=== PATIENT | male | born 1990 | race Caucasian/White ===

== ENCOUNTER 2017-11-23 08:36 | Emergency (ER) | payer OTHER ==
[2017-11-23] MEDS ORDERED: Famotidine 20 MG TAB ONE (09:11)
[2017-11-23] MEDS ORDERED: Ondansetron ODT 8 MG TAB ONE (09:11)
[2017-11-23] MEDS ORDERED: Ondansetron HCl/PF 4 MG/2 ML Vial ONE ×2 (09:11→09:47)
[2017-11-23 09:12] LABS: #Lymphocytes 1.9 thou/uL (1.20-3.40); #Monocytes 1.6 thou/uL (0.11-0.59); #Neutrophils 10.8 thou/uL (1.40-6.50); %Eosinophils 0.2 % (0.0-10.0); %Lymphocytes 13.2 % (21.0-51.0); %Monocytes 10.9 % (0.0-10.0); %Neutrophils 75.7 % (42.0-75.0); Mean Corpuscular HGB CONC 36.1 g/dL (32.0-36.0); Mean Corpuscular Hemoglobin 30.8 pg (27.0-31.0); Mean Corpuscular Volume 85.4 fl (80.0-94.0); Mean Platelet Volume 7.4 fL (7.4-10.4); Platelet Count 298 thou/uL (130-400); RBC Distribution Width 11.5 % (11.5-14.5); Red Blood Cell (RBC) Count 6.17 mill/uL (4.70-6.10); White Blood Cell (WBC) Count 14.3 thou/uL (4.8-10.8)
[2017-11-23] MEDS ORDERED: Dicyclomine 20 MG TAB ONE (09:13)
[2017-11-23 09:15] LABS: Bilirubin Moderate (Negative); Blood, Urine Negative (Negative); Clarity CLOUDY (Clear); Glucose, Urine (Dipstick) Negative (Negative); Leukocyte Trace (Negative); Nitrite Negative (Negative); Protein, Urine (Dipstick) 100 mg/dL (Neg-Trace); Specific Gravity, Urine 1.034 (1.002-1.036); Urobilinogen 0.2 mg/dL (0.2-1.0)
[2017-11-23 09:17] LABS: WBC/HPF 21-50 HPF (0-3)
[2017-11-23] MEDS ORDERED: Pantoprazole 40 MG VIAL ONE (09:22)
[2017-11-23 09:34] LABS: Pathc Cast-AUWi Flag 8.72 (0-2.49); RBC/HPF 0-3 HPF (0-3)
[2017-11-23 09:35] LABS: Renal Epithelial 0-3 HPF (0-3)
[2017-11-23 09:36] LABS: Bacteria/HPF Rare-Few HPF (None Seen)
[2017-11-23 09:46] LABS: ALT (SGPT) 31 U/L (8-55); AST (SGOT) 24 U/L (5-34); Albumin 5.5 g/dL (3.5-5.0); Alkaline Phosphatase 53 U/L (40-150); Anion Gap 22 mmol/L (10-20); BUN (Urea Nitrogen) 23 mg/dL (8.9-20.6); Bilirubin, Total 1.5 mg/dL (0.2-1.2); Calc. Creatinine Clearance 0 mL/min (70-130); Calcium 10.9 mg/dL (7.8-10.44); Carbon Dioxide 19 mmol/L (22-29); Chloride 100 mmol/L (98-107); Estimated GFR-MDRD 66; Globulin 3.5 g/dL (2.4-3.5); Glucose 113 mg/dL (70-105); Lipase 10 U/L (8-78); Potassium 3.9 mmol/L (3.5-5.1); Sodium 137 mmol/L (136-145)
[2017-11-23] MEDS ORDERED: Iopamidol 370 76% 50 ML VIAL FS ONE (10:59)
[2017-11-23] MEDS ORDERED: ISOVUE-370 76%-LOCM 1 ML ONE (10:59)
[2017-11-23] MEDS ORDERED: Metoclopramide HCl 10 MG/2 ML VIAL ONE (11:22)
--- NOTE | 2017-11-23 11:57 | CT ---
ABDOMEN AND PELVIS CT CONTRAST ENHANCED: HISTORY: Diffuse abdominal pain. Nausea and vomiting. FINDINGS: Contrast enhanced CT images of the abdomen and pelvis demonstrate the lung bases to be unremarkable. No evidence of free intraperitoneal air is seen. The liver and spleen are unremarkable. The gallbladder and pancreas are unremarkable. The adrenal g lands and kidneys are unremarkable. No evidence of paraaortic lymphadenopathy is seen. No dilated loops of small bowel are seen. A norm al appendix is seen. The colon is unremarkable. No evidence of hernias or intraabdominal pathology is seen. There does appear to be some thickening seen in the bladder wall. This may represent possible cystit is. Some esophageal wall thickening. Impression: 1: Bladder and esophageal thickening. POS: C
[2017-11-23] MEDS ORDERED: Lorazepam 2 MG/ML VIAL ONE (13:07)
[2017-11-23] MEDS ORDERED: Ciprofloxacin 500 MG TAB ONE (13:08)
[2017-11-25 10:28] LABS: Chlamydia trachomatis by NAA Negative (Negative)
== END 2017-11-23 13:44 | disposition home or self-care (01) ==
LOC: ERS 08:36
DX: N30.00 Acute cystitis without hematuria (principal); R11.2 Nausea with vomiting, unspecified; F41.9 Anxiety disorder, unspecified; F32.9 Major depressive disorder, single episode, unspecified
CPT/HCPCS: 36415; 74177; 80053; 81003; 81015; 82550; 83690; 85025; 87491; 87591; 96361; 96374; 96375; C9113; J2060; J2405; J2765

== ENCOUNTER 2017-11-23 21:21 | Observation (INO) | payer OTHER ==
[2017-11-23] MEDS ORDERED: Promethazine HCl 25 MG/ML VIAL ONE (21:51)
[2017-11-23 22:19] LABS: #Lymphocytes 2.7 thou/uL (1.20-3.40); #Monocytes 1.6 thou/uL (0.11-0.59); #Neutrophils 8.7 thou/uL (1.40-6.50); %Basophils 0.2 % (0.0-1.0); %Eosinophils 0.1 % (0.0-10.0); %Lymphocytes 20.6 % (21.0-51.0); %Monocytes 12.3 % (0.0-10.0); %Neutrophils 66.8 % (42.0-75.0); Hemoglobin 17.7 g/dL (14.0-18.0); Mean Corpuscular HGB CONC 35.9 g/dL (32.0-36.0); Mean Corpuscular Hemoglobin 30.7 pg (27.0-31.0); Mean Corpuscular Volume 85.4 fl (80.0-94.0); Mean Platelet Volume 7.2 fL (7.4-10.4); Platelet Count 251 thou/uL (130-400); RBC Distribution Width 11.4 % (11.5-14.5); Red Blood Cell (RBC) Count 5.78 mill/uL (4.70-6.10); White Blood Cell (WBC) Count 13.1 thou/uL (4.8-10.8)
[2017-11-23 22:50] LABS: ALT (SGPT) 29 U/L (8-55); AST (SGOT) 23 U/L (5-34); Albumin 5.1 g/dL (3.5-5.0); Alkaline Phosphatase 49 U/L (40-150); Anion Gap 17 mmol/L (10-20); BUN (Urea Nitrogen) 17 mg/dL (8.9-20.6); Bilirubin, Total 1.8 mg/dL (0.2-1.2); Calc. Creatinine Clearance 0 mL/min (70-130); Carbon Dioxide 21 mmol/L (22-29); Chloride 102 mmol/L (98-107); Estimated GFR-MDRD Greater than 90; Globulin 2.8 g/dL (2.4-3.5); Glucose 92 mg/dL (70-105); Potassium 3.3 mmol/L (3.5-5.1); Protein, Total 7.9 g/dL (6.0-8.3); Sodium 137 mmol/L (136-145)
[2017-11-23] MEDS ORDERED: diphenhydrAMINE 50 MG/ML VIAL ONE (22:58)
[2017-11-23] MEDS ORDERED: cefTRIAXone\\ROCEPHIN 1 GM VIAL ONE (23:32)
[2017-11-23 23:45] LABS: Amphetamine Not Detected (NotDetected); Benzodiazepine Screen Detected (NotDetected); Cocaine Metabolite Screen Not Detected (NotDetected); Medtox Reader # READER 4; Methamphetamine Not Detected (NotDetected); Opiate Screen Not Detected (NotDetected); Phencyclidine (PCP) Not Detected (NotDetected); THC/Cannabinoid Screen Detected (NotDetected); Tricyclic Screen Detected (NotDetected)
[2017-11-23] MEDS ORDERED: Haloperidol Lactate 5 MG/ML VIAL ONE (23:45)
[2017-11-23 23:46] LABS: Barbiturates Screen Not Detected (NotDetected); Medtox Control Line Valid? VALID (VALID); Methadone Not Detected (NotDetected); Oxycodone Screen Not Detected (NotDetected)
[2017-11-24 00:02] LABS: HIV (1/2) Antibody/Antigen Non-Reactive (NonReactive); HIV 1/2 INDEX 0.28 S/CO (<1.00)
[2017-11-24 01:04] VITALS: BMI 21.3
[2017-11-24] MEDS: Dextrose 5 % And 0.9 % NaCl 1,000 ML IV SCH ×2 (02:02→11:03)
[2017-11-24 02:35] LABS: Lactic Acid 1.9 mmol/L (0.5-2.2)
[2017-11-24] MEDS ORDERED: Haloperidol Lactate 5 MG/ML VIAL IM SCH (04:00)
[2017-11-24] MEDS ORDERED: Promethazine HCl 25 MG/ML VIAL IM/IV PRN (08:47)
[2017-11-24] MEDS ORDERED: Ondansetron HCl/PF 4 MG/2 ML Vial IVP PRN (08:47)
[2017-11-24] MEDS ORDERED: Acetaminophen 325 MG TAB PO PRN (08:48)
[2017-11-24 09:15] LABS: #Lymphocytes 2.6 thou/uL (1.20-3.40); #Monocytes 1.2 thou/uL (0.11-0.59); %Basophils 0.2 % (0.0-1.0); %Eosinophils 0.4 % (0.0-10.0); %Lymphocytes 23.6 % (21.0-51.0); %Monocytes 11.3 % (0.0-10.0); %Neutrophils 64.6 % (42.0-75.0); Hemoglobin 15.4 g/dL (14.0-18.0); Mean Corpuscular HGB CONC 35.3 g/dL (32.0-36.0); Mean Corpuscular Hemoglobin 30.6 pg (27.0-31.0); Mean Corpuscular Volume 86.8 fl (80.0-94.0); Mean Platelet Volume 7.3 fL (7.4-10.4); Platelet Count 186 thou/uL (130-400); RBC Distribution Width 11.3 % (11.5-14.5); Red Blood Cell (RBC) Count 5.04 mill/uL (4.70-6.10); White Blood Cell (WBC) Count 10.8 thou/uL (4.8-10.8)
[2017-11-24 09:36] LABS: Anion Gap 9 mmol/L (10-20); BUN (Urea Nitrogen) 13 mg/dL (8.9-20.6); Calc. Creatinine Clearance 139 mL/min (70-130); Calcium 8.8 mg/dL (7.8-10.44); Carbon Dioxide 27 mmol/L (22-29); Chloride 105 mmol/L (98-107); Estimated GFR-MDRD Greater than 90; Glucose 117 mg/dL (70-105); Potassium 3.6 mmol/L (3.5-5.1); Sodium 137 mmol/L (136-145)
[2017-11-24 11:34] VITALS: BP 110/67; TEMP 97.9
--- NOTE | 2017-11-24 12:20 | HP ---
HISTORY OF PRESENT ILLNESS: This is a 27-year-old gentleman with a past medical history significant for daily infrequent marijuana use, presents to the hospital due to nausea, vomiting that has been g oing on for the past few days. The patient states that he began having nausea, vomiting for the past few days that has continued to be persistent. The patient went to an urgent care clinic approximate ly a day or two ago because of these symptoms and was told that he had a stomach virus. The patient was treated supportively there had went home, but he said his symptoms continued, so he decided to co me to the hospital for further evaluation and management. He complains of some diffuse abdominal megan n as well. Denies any chills, sweats, diarrhea, melena, or hematochezia. The patient states that he smokes marijuana daily. He states that he has been smoking marijuana, even with all these symptoms that have been going on. PAST MEDICAL HISTORY: Polysubstance abuse. PAST MEDICAL HISTORY: None. FAMILY HISTORY: Reviewed and was noncontributory. REVIEW OF SYSTEMS: A 14-point review of systems was reviewed and was negative other than what was me ntioned in the HPI. HOME MEDICATIONS: None. DRUG ALLERGIES: None. PHYSICAL EXAMINATION: VITAL SIGNS: Blood pressure is 131/78, pulse 99, respiratory rate was 16, pulse was 64. GENERAL: The patient was in no apparent distress, was lying in bed, but had little bit of tremors. HEENT: Head: Normocephalic, atraumatic. Eyes: Pupils are round and reactive to light. Extraocula r muscles were intact. Conjunctivae are pink. Sclerae nonicteric. Mouth: Oral mucosa pink and hao st. No erythema was noted. NECK: Soft, supple, no JVD, no carotid bruits, lymphadenopathy. CARDIOVASCULAR: Regular rate and rhythm. S1, S2 sounds are heard. No S3, no S4. RESPIRATORY: Clear bilateral sounds. ABDOMEN: Bowel sounds, soft, mild tenderness diffusely throughout. No guarding or rebound. EXTREMITIES: Pulses were 2+ dorsalis pulse. No pedal edema could be appreciated. LABORATORY DATA: White blood cell count was 13.1 and went down to 10.8, hemoglobin was 17.7, platele t count was 251. Sodium was 137, potassium 3.3 to 3.6, chloride 102, bicarbonate is 21 and 27, BUN w as 17, creatinine was 0.97, then 0.75, glucose was 117, lactic acid was 3.3 initially, then came down to 1.9. Drug tox was positive for benzodiazepines, marijuana, as well as tricyclics. CT of the abdomen just showed thickening of the esophagus as well as the bladder. ASSESSMENT AND PLAN: 1. Nausea, vomiting, likely secondary to continued frequent marijuana use. 2. Lactic acidosis likely secondary to prerenal in nature, resolved. The patient while in hospital, patient will be treated supportively with Zofran as well as Phenergan. The patient was initially made n.p.o., but will advance the diet as tolerated. Will allow the lucy ent to sleep off symptoms that he is having right now as the patient does seem to be improving. If h e continues to improve, we will discharge the patient later today as there is no other interventions required at this time.
--- NOTE | 2017-11-24 12:37 | DIS ---
DISCHARGE DIAGNOSES: 1. Nausea, vomiting, likely secondary to continued marijuana use. 2. Marijuana use. HOSPITAL COURSE: While the patient was in hospital, the patient was treated supportively with Zofran as well as Phenergan. The patient was also started on IV fluids as well. The patient with supporti ve measures only, the patient had improved significantly. The lactic acid had resolved. The patient no longer was having nausea, vomiting. The patient's diet was advanced from n.p.o. to regular diet for which the patient tolerated with no issues. There were no other issues that was going on. The l eukocytosis had also resolved, which was thought to be a stress reaction in nature; therefore did not require antibiotics. Because the patient was doing well, and was comfortable we are discharging the patient home. I had educated and instructed the patient to stay away from marijuana for which the p atient states that he understood. DISCHARGE CONDITION: Much improved from when he first came in. DISCHARGE ACTIVITY: As tolerated. DISCHARGE MEDICATIONS: Please see home medication list, it has been reconciled. DISCHARGE DIET: As tolerated. DISCHARGE FOLLOWUP APPOINTMENTS: Followup with primary care physician as needed. Discharge planning took less than 30 minutes.
== END 2017-11-24 14:36 | disposition home or self-care (01) ==
LOC: ERS 21:21 → 2SW 11-24 00:02
PROVIDERS: ADMIT Internal Medicine; ATTEND Internal Medicine
DX: R11.2 Nausea with vomiting, unspecified (principal); E87.2 Acidosis; F19.11 Other psychoactive substance abuse, in remission
CPT/HCPCS: 36415; 80048; 80306; 83605; 85025; 87040; 87389; 96361; 96365; 96366; 96367; 96372; 96375; G0378; J0696; J1200; J1630; J2550

== ENCOUNTER 2018-01-30 05:12 | Emergency (ER) | payer OTHER, SELFPAY ==
[2018-01-30] MEDS ORDERED: Ondansetron HCl/PF 4 MG/2 ML Vial ONE (05:59)
[2018-01-30 06:15] LABS: #Lymphocytes 1.4 thou/uL (1.20-3.40); #Monocytes 1.1 thou/uL (0.11-0.59); #Neutrophils 13.2 thou/uL (1.40-6.50); %Basophils 0.3 % (0.0-1.0); %Eosinophils 0.2 % (0.0-10.0); %Lymphocytes 8.9 % (21.0-51.0); %Monocytes 6.7 % (0.0-10.0); %Neutrophils 83.9 % (42.0-75.0); Hemoglobin 17.6 g/dL (14.0-18.0); Mean Corpuscular HGB CONC 35.3 g/dL (32.0-36.0); Mean Corpuscular Hemoglobin 30.6 pg (27.0-31.0); Mean Corpuscular Volume 86.5 fL (78.0-98.0); Mean Platelet Volume 7.7 fL (7.4-10.4); Platelet Count 284 thou/uL (130-400); RBC Distribution Width 11.3 % (11.5-14.5); Red Blood Cell (RBC) Count 5.75 mill/uL (4.70-6.10); White Blood Cell (WBC) Count 15.7 thou/uL (4.8-10.8)
[2018-01-30] MEDS ORDERED: Capsaician 0.025% Cream 60 gm Tube TOP SCH (06:30)
[2018-01-30 06:34] LABS: ALT (SGPT) 49 U/L (8-55); AST (SGOT) 29 U/L (5-34); Albumin 5.3 g/dL (3.5-5.0); Alkaline Phosphatase 50 U/L (40-150); Anion Gap 21 mmol/L (10-20); BUN (Urea Nitrogen) 12 mg/dL (8.9-20.6); Bilirubin, Total 1.8 mg/dL (0.2-1.2); Calc. Creatinine Clearance 0 mL/min (70-130); Calcium 10.7 mg/dL (7.8-10.44); Carbon Dioxide 17 mmol/L (22-29); Chloride 103 mmol/L (98-107); Estimated GFR-MDRD Greater than 90; Globulin 3.2 g/dL (2.4-3.5); Glucose 173 mg/dL (70-105); Lipase 11 U/L (8-78); Protein, Total 8.5 g/dL (6.0-8.3); Sodium 137 mmol/L (136-145)
[2018-01-30] MEDS ORDERED: Haloperidol Lactate 5 MG/ML VIAL ONE ×2 (06:45→07:41)
[2018-01-30 07:40] LABS: Bilirubin Negative (Negative); Blood, Urine Negative (Negative); Clarity CLEAR (Clear); Glucose, Urine (Dipstick) 100 mg/dL (Negative); Leukocyte Negative (Negative); Nitrite Negative (Negative); Protein, Urine (Dipstick) Negative (Neg-Trace); Specific Gravity, Urine 1.024 (1.002-1.036); Urobilinogen 0.2 mg/dL (0.2-1.0)
[2018-01-30 07:52] LABS: Amphetamine Not Detected (NotDetected); Barbiturates Screen Not Detected (NotDetected); Benzodiazepine Screen Not Detected (NotDetected); Cocaine Metabolite Screen Not Detected (NotDetected); Medtox Control Line Valid? VALID (VALID); Medtox Reader # READER 4; Methadone Not Detected (NotDetected); Methamphetamine Not Detected (NotDetected); Opiate Screen Not Detected (NotDetected); Oxycodone Screen Not Detected (NotDetected); Phencyclidine (PCP) Not Detected (NotDetected); THC/Cannabinoid Screen Detected (NotDetected); Tricyclic Screen Not Detected (NotDetected)
== END 2018-01-30 09:56 | disposition home or self-care (01) ==
LOC: ERS 05:12
DX: F12.188 Cannabis abuse with other cannabis-induced disorder (principal); F41.9 Anxiety disorder, unspecified; F32.9 Major depressive disorder, single episode, unspecified
CPT/HCPCS: 80053; 80306; 81003; 83690; 85025; 93005; 96361; 96374; 96375; J1630; J2405

== ENCOUNTER 2018-01-31 12:43 | Emergency (ER) | payer OTHER | END 2018-01-31 14:19 | disposition left against medical advice (07) | LOC: ERS 12:43 | DX: Z53.21 Procedure and treatment not carried out due to patient leaving prior to being seen by health care provider (principal) ==

== ENCOUNTER 2018-02-02 10:18 | Inpatient (IN) | payer OTHER, SELFPAY ==
[2018-02-02] MEDS ORDERED: Ondansetron HCl/PF 4 MG/2 ML Vial ONE ×2 (10:47→11:11)
[2018-02-02 11:17] LABS: #Basophils 0.1 thou/uL (0.0-0.2); #Lymphocytes 2.2 thou/uL (1.20-3.40); #Monocytes 1.3 thou/uL (0.11-0.59); #Neutrophils 10.7 thou/uL (1.40-6.50); %Basophils 0.5 % (0.0-1.0); %Eosinophils 0.3 % (0.0-10.0); %Lymphocytes 15.4 % (21.0-51.0); %Monocytes 8.8 % (0.0-10.0); Hemoglobin 19.8 g/dL (14.0-18.0); Mean Corpuscular HGB CONC 36.6 g/dL (32.0-36.0); Mean Corpuscular Hemoglobin 30.8 pg (27.0-31.0); Mean Platelet Volume 7.4 fL (7.4-10.4); Platelet Count 291 thou/uL (130-400); RBC Distribution Width 11.6 % (11.5-14.5); Red Blood Cell (RBC) Count 6.42 mill/uL (4.70-6.10); White Blood Cell (WBC) Count 14.3 thou/uL (4.8-10.8)
[2018-02-02 11:33] LABS: Bilirubin Small (Negative); Blood, Urine Negative (Negative); Clarity CLEAR (Clear); Glucose, Urine (Dipstick) Negative (Negative); Leukocyte Negative (Negative); Nitrite Negative (Negative); Protein, Urine (Dipstick) 30 mg/dL (Neg-Trace); Specific Gravity, Urine 1.033 (1.002-1.036); pH, Urine 5.5 (5.0-9.0)
[2018-02-02 11:36] LABS: Bacteria/HPF None Seen HPF (None Seen); Pathc Cast-AUWi Flag 2.03 (0-2.49); RBC/HPF 0-3 HPF (0-3); Squamous Epithelial 0-3 HPF (0-3); WBC/HPF 0-3 HPF (0-3)
[2018-02-02 11:47] LABS: Hyaline Casts/LPF 7-10 HYALINE CAST LPF (0-3 Hyaline)
[2018-02-02 11:48] LABS: ALT (SGPT) 32 U/L (8-55); AST (SGOT) 20 U/L (5-34); Albumin 5.6 g/dL (3.5-5.0); Alkaline Phosphatase 60 U/L (40-150); Anion Gap 24 mmol/L (10-20); BUN (Urea Nitrogen) 25 mg/dL (8.9-20.6); Bilirubin, Total 3.8 mg/dL (0.2-1.2); Calc. Creatinine Clearance 0 mL/min (70-130); Calcium 10.4 mg/dL (7.8-10.44); Carbon Dioxide 18 mmol/L (22-29); Chloride 95 mmol/L (98-107); Estimated GFR-MDRD Greater than 90; Globulin 3.3 g/dL (2.4-3.5); Glucose 105 mg/dL (70-105); Lipase 10 U/L (8-78); Protein, Total 8.9 g/dL (6.0-8.3); Sodium 134 mmol/L (136-145)
[2018-02-02 11:51] LABS: Potassium 2.9 mmol/L (3.5-5.1)
--- NOTE | 2018-02-02 11:51 | CT ---
CT ABDOMEN WITH CONTRAST CT PELVIS WITH CONTRAST: DATE: 02/02/18 TIME: 1127 hours HISTORY: 27-year-old male with abdominal pain, hyperemesis, and leukocytosis. COMPARISON: 11/23/17. TECHNIQUE: IV injection of iodinated contrast media: Administered. Oral contrast media: Not administered. FINDINGS: Urinary bladder appears to have diffuse mural thickening, similar to the prior study. It is not full. Normal appendix, abdominal aorta, bilateral kidneys, adrenals, pancreas, liver, and spleen. No colon ic diverticulitis. No small bowel dilation. No ascites or abscess. No pleural effusion. The esophagit is demonstrated on the previous CT is no longer present. Otherwise, there has been no other interval change. IMPRESSION: 1. Apparent bladder mural thickening, either due to nondistention or cystitis. 2. Otherwise normal. JNR POS: KAYLYNN
[2018-02-02] MEDS ORDERED: Potassium Chloride 20 MEQ TAB ONE (11:55)
[2018-02-02] MEDS ORDERED: Diabetic Tussin 200 MG/10 ML UDCUP PO PRN (12:10)
[2018-02-02] MEDS ORDERED: Bisacodyl 5 MG TAB PO PRN ×2 (12:10)
[2018-02-02] MEDS ORDERED: Ondansetron HCl/PF 4 MG/2 ML Vial IVP PRN ×2 (12:10)
[2018-02-02] MEDS ORDERED: Senokot 8.6 MG TAB PO PRN ×2 (12:10)
[2018-02-02] MEDS ORDERED: hydrALAZINE 20 MG/ML VIAL SLOW IVP PRN (12:10)
[2018-02-02] MEDS ORDERED: Benzonatate 100 MG CAP PO PRN (12:10)
[2018-02-02] MEDS ORDERED: Mag-Al 1200 mg/1200 mg/30 ML UDCUP PO PRN (12:10)
[2018-02-02] MEDS ORDERED: traMADol HCl 50 MG TAB PO PRN (12:10)
[2018-02-02] MEDS ORDERED: Calcium Carbonate 500 MG ChewTAB PO PRN (12:10)
[2018-02-02] MEDS ORDERED: Loratadine 10 MG TAB PO PRN (12:10)
[2018-02-02] MEDS ORDERED: Nitroglycerin 0.4 MG TAB (25 Tab Bottle) SL PRN (12:10)
[2018-02-02] MEDS ORDERED: cloNIDine 0.1 MG TAB PO PRN (12:10)
[2018-02-02] MEDS ORDERED: Acetaminophen 325 MG TAB PO PRN (12:10)
[2018-02-02] MEDS ORDERED: Promethazine HCl 25 MG/ML VIAL ONE (12:13)
[2018-02-02] MEDS ORDERED: Sodium Chloride 0.9% 1,000 ML IV SCH (12:15)
[2018-02-02 12:32] LABS: Medtox Reader # READER 4
[2018-02-02 12:41] LABS: Amphetamine Not Detected (NotDetected); Barbiturates Screen Not Detected (NotDetected); Benzodiazepine Screen Not Detected (NotDetected); Cocaine Metabolite Screen Not Detected (NotDetected); Medtox Control Line Valid? VALID (VALID); Methadone Not Detected (NotDetected); Methamphetamine Not Detected (NotDetected); Opiate Screen Not Detected (NotDetected); Oxycodone Screen Not Detected (NotDetected); Phencyclidine (PCP) Not Detected (NotDetected); Tricyclic Screen Not Detected (NotDetected)
[2018-02-02 12:54] LABS: THC/Cannabinoid Screen Detected (NotDetected)
[2018-02-02] MEDS: Lorazepam 2 MG/ML VIAL SLOW IVP PRN (14:10)
[2018-02-02] MEDS ORDERED: Promethazine HCl 25 MG/ML VIAL IM/IV PRN (14:35)
--- NOTE | 2018-02-02 15:05 | HP ---
DATE OF ADMISSION: 02/02/2018 PRIMARY CARE PHYSICIAN: None. CHIEF COMPLAINT: Intractable vomiting. HISTORY OF PRESENTING ILLNESS: Mr. Wyatt is a 27-year-old male with known history of chronic marijuan a abuse and cannabis hyperemesis syndrome who presented to the emergency room with above-mentioned co mplaint. History is mainly obtained by the patient and the electronic medical records have been revi ewed. Case has been discussed with the admitting ER physician. He was last admitted to our facility on 11/24/2017 for the similar complaints. His symptoms were treated conservatively and he was disch arged and rehydrated. Today, he came back to the emergency room because of vomiting since Wednesday that was 4 days ago. He h as been vomiting nonstop according to him and has not been able to eat or drink much. He denies any abdominal cramps or stools. He reports that his urine is really dark and he is not urinating as much . Otherwise, he denies any recent illnesses. No fever, chills or chest pain, shortness of breath. He continues to smoke marijuana and the last time he used it was about 2 days ago. He knows that he has "cannabis hyperemesis syndrome" and he knows that taking a hot shower sometimes help with his sym ptoms. Upon presentation to the emergency room, he was hypertensive with blood pressure 158/105. Otherwise, hemodynamically stable. His workup showed evidence of severe dehydration and hemoconcentration with hemoglobin of 19.8. WBCs of 14.3. His serum chemistry showed hypokalemia, metabolic acidosis as we ll as ketonuria. Total bilirubin elevated at 3.8. Lipase was normal. Urine drug screen positive fo r cannabinoids. Please note that he was seen in the emergency room on 01/31/2018 for similar symptom s, but at that time he left AMA. In the emergency room, he was given IV fluids, potassium chloride as well as Phenergan and Zofran as now being admitted for intractable vomiting due to cannabis use. PAST MEDICAL HISTORY: 1. Cannabis hyperemesis syndrome. 2. Polysubstance abuse. PAST SURGICAL HISTORY: Reviewed with the patient and none. PSYCHIATRIC HISTORY: Anxiety and depression. SOCIAL HISTORY: Lives with roommates. He abuses marijuana and has history of other drug abuse in th e past. No smoking history. No alcohol history. FAMILY HISTORY: No premature coronary artery disease, cancer or stroke. ALLERGIES: No known medication allergies. CURRENT MEDICATIONS: Listed in the emergency room record, Zofran as needed, Effexor 37.5 daily and c apsaicin topical. REVIEW OF SYSTEMS: A 12-point review of systems was done and is negative except for those mentioned in the history and physical. LABORATORY DATA: His CBC shows WBCs at 14.3 without any left shift. Hemoglobin 19.8 and platelet co unt of 291. Serum chemistry shows sodium 134, potassium 2.9, chloride 95, bicarbonate 18, anion gap 24, BUN 25, creatinine 0.97, total bilirubin 3.8, which was 1.8 on 01/30/2018. Urinalysis shows prot einuria, ketonuria, bilirubin and multiple high line and granular cough. Toxicology is positive for cannabinoids. CT scan of the abdomen and pelvis is done in the emergency room today and by my review . He might have evidence of some wall thickening of the urinary bladder, possibly cystitis. PHYSICAL EXAMINATION: VITAL SIGNS: Most recent vital signs, temperature 98.8, pulse of 73, respirations 18, saturating 99% on room air, blood pressure 144/90. GENERAL: No acute distress. The patient is lying comfortably in bed. Just received some Ativan. R eportedly, has vomited 3 times already since he has been upstairs in the room. HEENT: He appears pale, but mucous membrane is moist. No oropharyngeal exudate or erythema. Head i s normocephalic, atraumatic. Pupils are equal, reactive to light and accommodation. Extraocular mov ement intact. NECK: Supple without any lymphadenopathy, JVD or bruit. CHEST: Clear to auscultation without any wheezing, rales or rhonchi. Rhythm is regular without any murmur, rubs or gallops. ABDOMEN: Slightly tender to palpation in the epigastric region. No rebound, guarding, or rigidity. No hepatosplenomegaly. EXTREMITIES: Free of any cyanosis, clubbing, or edema. NEUROLOGIC: Examination is nonfocal. SKIN: Free of any rashes or bruises. I feel warm and dry to touch. PSYCHIATRIC: Normal affect. IMPRESSION AND PLAN: 1. Hyperemesis secondary to cannabis use. The patient has been counseled extensively and hopefully he will listen this time. Meanwhile, we will continue to treat him with symptomatic and supportive c are. We will put him on normal saline with potassium and recheck his base met later in the day. He will be treated with IV Phenergan as well as IV Zofran for now. The patient is aware of his symptoms and is aware of the diagnosis. Despite this, he continues to use. He will be started on clear liqu id diet with advance as tolerated. Use p.r.n. benzodiazepines for anxiety symptoms. 2. Hypertension secondary to marijuana abuse and withdrawal. Use p.r.n. antihypertensives and Ativa n as needed for the symptoms. 3. High anion gap metabolic acidosis secondary to cannabis intoxication. Start him on normal saline and recheck the labs. 4. Elevated bilirubin, possibility of Gilbert syndrome is likely. Otherwise, liver enzymes are unre markable. We will repeat the labs in the morning. If it does not start to correct with hydration, w e will check an abdominal ultrasound. Patient is not exhibiting any specific signs and symptoms of c holelithiasis, though he does have hyperemesis which is likely contributed by the cannabis use. 5. Hypokalemia. Replace and recheck. We will add potassium to the IV fluids. 6. Hemoconcentration and severe dehydration. IV fluids as above. 7. Disposition: Mr. Wyatt is currently being admitted to the hospital for acute cannabis intoxicatio n and cannabis hyperemesis syndrome and severe dehydration. Estimated length of stay at this time is at least 2-3 midnights. Further management will depend upon his clinical course.
[2018-02-02] MEDS ORDERED: ISOVUE-370 76%-LOCM 1 ML ONE (15:12)
[2018-02-02 15:22] VITALS: BMI 20.7
[2018-02-02] MEDS: 1/2 NS w/KCL 20 mEq 1,000 ML IV SCH (15:47)
[2018-02-02 16:14] LABS: Anion Gap 17 mmol/L (10-20); BUN (Urea Nitrogen) 16 mg/dL (8.9-20.6); Calc. Creatinine Clearance 120 mL/min (70-130); Calcium 8.9 mg/dL (7.8-10.44); Carbon Dioxide 22 mmol/L (22-29); Chloride 101 mmol/L (98-107); Estimated GFR-MDRD Greater than 90; Glucose 98 mg/dL (70-105); Potassium 3.3 mmol/L (3.5-5.1); Sodium 137 mmol/L (136-145)
[2018-02-02] MEDS: Famotidine/PF 20 mg/2ml Vial SLOW IVP SCH (21:04)
[2018-02-02] MEDS: Promethazine HCl 12.5 MG in Sodium Chloride 0.9% 50 ML IVPB PRN (22:39)
[2018-02-03] MEDS: 1/2 NS w/KCL 20 mEq 1,000 ML IV SCH ×4 (03:56→21:45)
[2018-02-03] MEDS: Lorazepam 2 MG/ML VIAL SLOW IVP PRN (04:15)
[2018-02-03 06:14] LABS: Anion Gap 15 mmol/L (10-20); BUN (Urea Nitrogen) 11 mg/dL (8.9-20.6); Calc. Creatinine Clearance 146 mL/min (70-130); Calcium 8.7 mg/dL (7.8-10.44); Carbon Dioxide 21 mmol/L (22-29); Chloride 102 mmol/L (98-107); Estimated GFR-MDRD Greater than 90; Glucose 80 mg/dL (70-105); Potassium 3.1 mmol/L (3.5-5.1); Sodium 135 mmol/L (136-145)
[2018-02-03 06:18] LABS: #Lymphocytes 2.4 thou/uL (1.20-3.40); #Monocytes 1.5 thou/uL (0.11-0.59); #Neutrophils 7.9 thou/uL (1.40-6.50); %Basophils 0.3 % (0.0-1.0); %Eosinophils 0.4 % (0.0-10.0); %Lymphocytes 20.2 % (21.0-51.0); %Monocytes 12.4 % (0.0-10.0); %Neutrophils 66.7 % (42.0-75.0); Hemoglobin 15.8 g/dL (14.0-18.0); Mean Corpuscular HGB CONC 35.9 g/dL (32.0-36.0); Mean Corpuscular Hemoglobin 30.9 pg (27.0-31.0); Mean Corpuscular Volume 86.2 fL (78.0-98.0); Mean Platelet Volume 7.4 fL (7.4-10.4); Platelet Count 205 thou/uL (130-400); RBC Distribution Width 11.3 % (11.5-14.5); Red Blood Cell (RBC) Count 5.11 mill/uL (4.70-6.10); White Blood Cell (WBC) Count 11.8 thou/uL (4.8-10.8)
[2018-02-03] MEDS: Enoxaparin Sodium 40 MG/0.4 ML SYRINGE SC SCH (09:48)
[2018-02-03] MEDS: Famotidine/PF 20 mg/2ml Vial SLOW IVP SCH ×2 (09:48→21:45)
[2018-02-03] MEDS ORDERED: Potassium Chloride 20 MEQ TAB PO SCH (10:30)
[2018-02-03] MEDS: Promethazine HCl 12.5 MG in Sodium Chloride 0.9% 50 ML IVPB PRN (10:59)
[2018-02-03] MEDS ORDERED: Venlafaxine HCl 25 MG TAB PO SCH (15:45)
[2018-02-04] MEDS ORDERED: Melatonin 3 MG TAB PO SCH (01:15)
[2018-02-04] MEDS: Enoxaparin Sodium 40 MG/0.4 ML SYRINGE SC SCH (08:08)
[2018-02-04] MEDS: Famotidine/PF 20 mg/2ml Vial SLOW IVP SCH (08:09)
[2018-02-04] MEDS ORDERED: Venlafaxine HCl 25 MG TAB PO SCH (09:00)
[2018-02-04] MEDS: 1/2 NS w/KCL 20 mEq 1,000 ML IV SCH (09:31)
[2018-02-04 10:38] LABS: Anion Gap 9 mmol/L (10-20); BUN (Urea Nitrogen) 8 mg/dL (8.9-20.6); Calc. Creatinine Clearance 163 mL/min (70-130); Calcium 8.7 mg/dL (7.8-10.44); Carbon Dioxide 27 mmol/L (22-29); Chloride 104 mmol/L (98-107); Estimated GFR-MDRD Greater than 90; Glucose 103 mg/dL (70-105); Potassium 3.7 mmol/L (3.5-5.1); Sodium 136 mmol/L (136-145)
[2018-02-04 13:38] VITALS: BP 137/88; TEMP 98
[2018-02-06 13:06] LABS: ALT (SGPT) 18 U/L (8-55); AST (SGOT) 14 U/L (5-34); Albumin 4.3 g/dL (3.5-5.0); Alkaline Phosphatase 40 U/L (40-150); Bilirubin, Direct 0.7 mg/dL (0.1-0.3); Bilirubin, Total 2.5 mg/dL (0.2-1.2); Protein, Total 6.5 g/dL (6.0-8.3)
--- NOTE | 2018-02-06 23:24 | DIS ---
DATE OF ADMISSION: 02/02/2018 DATE OF DISCHARGE: 02/04/2018 DISCHARGE DIAGNOSES: 1. Hyperemesis secondary to marijuana use. 2. Mild leukocytosis. 3. Hypokalemia. 4. Anion gap metabolic acidosis. 5. Elevated bilirubin. HOSPITAL COURSE: The patient is a 27-year-old male who initially presented to the hospital with naus ea, vomiting after smoking marijuana. The patient states that this has happened to him in the past a nd normally when he takes a hot shower, it helps them. Patient was admitted to the hospital, was hyd rated. He, on discharge, was able to tolerate oral food well without any abnormalities. The patient 's electrolytes were also replaced. The patient again was discharged home. He will follow up with h is PCP as an outpatient. DISCHARGE MEDICATIONS: As following, he just takes venlafaxine 25 mg p.o. daily. PHYSICAL EXAMINATION: VITAL SIGNS: Temperature 98.0, 68, 16, 97% on room air, 137/88. GENERAL: He is awake, alert and oriented x3, does not appear in distress. CARDIOVASCULAR: S1, S2 present. No murmurs, rubs or gallops. ABDOMEN: Soft, nontender. Bowel sounds present x2. EXTREMITIES: No edema. Pedal pulses present x2. DISCHARGE INSTRUCTIONS: Again, he will be discharged home. Follow up with PCP and he was asked to r amarjit from marijuana use.
== END 2018-02-04 14:07 | disposition home or self-care (01) | DRG 897 ==
LOC: ERS 10:18 → T4-A 12:05
PROVIDERS: ADMIT Internal Medicine; ATTEND Internal Medicine
DX: F12.129 Cannabis abuse with intoxication, unspecified (principal); E87.2 Acidosis; R11.10 Vomiting, unspecified; I10 Essential (primary) hypertension; E87.6 Hypokalemia; E86.0 Dehydration; F41.9 Anxiety disorder, unspecified; F32.9 Major depressive disorder, single episode, unspecified
CPT/HCPCS: 36415; 74177; 80048; 80053; 80076; 80306; 81003; 81015; 83690; 85025; 96361; 96374; 96375; A4216; J1650; J2060; J2405; J2550; J7050; S0028

== ENCOUNTER 2018-02-20 22:41 | Observation (INO) | payer OTHER ==
[2018-02-20] MEDS ORDERED: Haloperidol Lactate 5 MG/ML VIAL ONE (23:18)
[2018-02-20] MEDS ORDERED: Capsaician 0.025% Cream 60 gm Tube TOP SCH (23:45)
[2018-02-21] MEDS ORDERED: Ondansetron HCl/PF 4 MG/2 ML Vial IVP PRN (01:21)
[2018-02-21] MEDS ORDERED: Ondansetron ODT 4 MG TAB SL PRN (01:21)
[2018-02-21] MEDS ORDERED: Sodium Chloride 0.9% 1,000 ML IV SCH ×2 (01:21→03:39)
[2018-02-21] MEDS ORDERED: Haloperidol Lactate 5 MG/ML VIAL SLOW IVP PRN ×2 (01:22→03:39)
[2018-02-21 01:40] VITALS: BMI 45.6
[2018-02-21 01:46] LABS: Amphetamine Not Detected (NotDetected); Benzodiazepine Screen Detected (NotDetected); Cocaine Metabolite Screen Not Detected (NotDetected); Medtox Reader # READER 1; Methamphetamine Not Detected (NotDetected); Opiate Screen Not Detected (NotDetected); Phencyclidine (PCP) Not Detected (NotDetected); THC/Cannabinoid Screen Detected (NotDetected)
[2018-02-21 01:47] LABS: Barbiturates Screen Not Detected (NotDetected); Medtox Control Line Valid? VALID (VALID); Methadone Not Detected (NotDetected); Oxycodone Screen Not Detected (NotDetected); Tricyclic Screen Not Detected (NotDetected)
[2018-02-21] MEDS ORDERED: Acetaminophen 325 MG TAB PO PRN (03:39)
[2018-02-21] MEDS ORDERED: Acetaminophen 650 MG Suppository PR PRN (03:39)
[2018-02-21] MEDS: Potassium Chloride 20 MEQ TAB PO SCH ×2 (05:16→09:35)
[2018-02-21] MEDS ORDERED: Venlafaxine HCl 25 MG TAB PO SCH (09:00)
[2018-02-21] MEDS ORDERED: Famotidine 20 MG TAB PO SCH (09:00)
[2018-02-21] MEDS ORDERED: Promethazine HCl 25 MG in Sodium Chloride 0.9% 50 ML IVPB PRN (10:19)
[2018-02-21] MEDS ORDERED: Potassium Chloride 40 MEQ in Premix Bag 1 BAG IVPB SCH (10:30)
[2018-02-21] MEDS: Potassium Chloride 20 MEQ in Premix Bag 1 BAG IVPB SCH ×2 (11:41→14:58)
[2018-02-21] MEDS ORDERED: NS 0.9% w/ 20 MEQ KCL 1,000 ML/1,000 ML BAG IV SCH (14:45)
[2018-02-21 16:04] VITALS: BP 117/69; TEMP 98.2
--- NOTE | 2018-02-21 20:38 | DIS ---
DATE OF DISCHARGE: 02/21/2018 DISCHARGE DISPOSITION: Home. FOLLOWUP: Follow up with primary care physician, Dr. Varma in 1 week. The patient was seen and examined on the day of discharge: Denies any new complaints. Nausea and vo miting has significantly improved. BRIEF HOSPITAL COURSE: Patient is a 27-year-old male who presented to the emergency room with nausea and vomiting. Please refer to the history and physical for further details. The patient was admitted to the hospital earlier today by Dr. Gomez with the above diagnosis. He wa s started on IV fluids along with antiemetics. Urine drug screen was positive for benzodiazepines an d cannabinoids. His symptoms improved with above measures. He is able to tolerate clear liquid. Pe r patient request, he will be discharged. He was advised to follow up with his primary care. A repe at base met next week is recommended. Primary care physician advised to follow. FINAL DIAGNOSES: 1. Nausea, vomiting of unclear etiology, suspected secondary to cannabinoid. 2. Hypokalemia. He was unable to tolerate oral potassium replacement. He received potassium in the IV fluids. Repeat basic metabolic next week is recommended. 3. Anion gap metabolic acidosis secondary to dehydration. 4. Chronically elevated liver function tests of unclear etiology. 5. An outpatient GI evaluation would be helpful. 6. Dehydration, resolved. 7. Anxiety and depression. Patient denies any suicidal ideation. Plan of care was discussed with the patient in detail. He stated understanding. Lifestyle modificat ion was emphasized. Please refer to the history and physical for details.
== END 2018-02-21 18:23 | disposition home or self-care (01) ==
LOC: ERS 22:41 → 2SW 02-21 01:14
PROVIDERS: ADMIT Internal Medicine Infectious Disease; ATTEND Internal Medicine Infectious Disease
DX: R11.2 Nausea with vomiting, unspecified (principal); E87.6 Hypokalemia; E86.0 Dehydration; E87.2 Acidosis; R79.89 Other specified abnormal findings of blood chemistry; F41.8 Other specified anxiety disorders; Z79.899 Other long term (current) drug therapy
CPT/HCPCS: 80306; 96361; 96374; A4216; G0378; J1630; J2550; J3480; J7050